=== PATIENT | female | born 1970 | race African-American/Black ===

== ENCOUNTER 2017-05-27 16:18 | Outpatient (CLI) | payer OTHER | END 2017-05-27 16:19 | disposition home or self-care (01) | LOC: BICRAD 16:18 | PROVIDERS: ATTEND Internal Medicine | DX: Z02.71 Encounter for disability determination (principal) | CPT/HCPCS: 72100 ==

== ENCOUNTER 2017-07-07 16:26 | Emergency (ER) | payer OTHER, SELFPAY ==
[2017-07-07 17:11] LABS: Bilirubin Negative (Negative); Blood, Urine Large (Negative); Clarity CLOUDY (Clear); Glucose, Urine (Dipstick) Negative (Negative); Leukocyte Negative (Negative); Nitrite Negative (Negative); Protein, Urine (Dipstick) 30 mg/dL (Neg-Trace); Specific Gravity, Urine 1.031 (1.002-1.036)
[2017-07-07 17:17] LABS: Bacteria/HPF Rare-Few HPF (None Seen); Hyaline Casts/LPF 4-6 HYALINE CAST LPF (0-3 Hyaline); Pathc Cast-AUWi Flag 1.16 (0-2.49); Pregnancy Test - Urine (BHCG) Negative (Negative); Pregu Control Background? CLEAR/WHITE (CLR/WHITE); Pregu Control Bar Appear? YES (CONTROL BAR); RBC/HPF GREATER THAN 50-TNTC HPF (0-3); Specific Gravity 1.031 (1.002-1.036)
[2017-07-07] MEDS ORDERED: Ketorolac Tromethamine 30 MG/ML VIAL ONE (17:33)
--- NOTE | 2017-07-07 18:18 | ULT ---
ULTRASOUND PELVIC TRANSVAGINAL: 07/07/17 HISTORY: Low abdominal pain, heavy vaginal bleeding. COMPARISON: None. FINDINGS: The uterus measures 9.4 x 5 x 5.6 cm. Endometrial thickness is 6 mm. There appears to be a large hematoma within the lower uterine segment endometrial cavity. Of note, alejandra mclean is currently on her period. The right ovary measures 2.3 x 1.4 x 1.8 cm. The left ovary measures 2.1 x 2.9 x 1.8 cm. There is a 2 .2 cm cyst in the left ovary. No free fluid. Vascular flow to the ovaries is unable to be obtained due to positioning. IMPRESSION: 1. Blood and debris, nonvascular, within the lower uterine segment. Of note, patient is currentl y on her period. 2. Unable to obtain blood flow within both ovaries due to positioning. POS: [facility]
[2017-07-07 18:25] LABS: #Lymphocytes 1.6 thou/uL (1.20-3.40); #Monocytes 0.4 thou/uL (0.11-0.59); #Neutrophils 4.9 thou/uL (1.40-6.50); %Basophils 0.3 % (0.0-1.0); %Eosinophils 0.7 % (0.0-10.0); %Lymphocytes 22.7 % (21.0-51.0); %Monocytes 5.8 % (0.0-10.0); %Neutrophils 70.5 % (42.0-75.0); Hemoglobin 11.8 g/dL (12.0-16.0); Mean Corpuscular HGB CONC 33.2 g/dL (32.0-36.0); Mean Corpuscular Hemoglobin 30.9 pg (27.0-31.0); Mean Corpuscular Volume 93.3 fl (81.0-99.0); Platelet Count 274 thou/uL (130-400); RBC Distribution Width 13.1 % (11.5-14.5); Red Blood Cell (RBC) Count 3.81 mill/uL (4.20-5.40); White Blood Cell (WBC) Count 6.9 thou/uL (4.8-10.8)
[2017-07-07 18:41] LABS: ALT (SGPT) 11 U/L (8-55); AST (SGOT) 14 U/L (5-34); Albumin 3.9 g/dL (3.5-5.0); Alkaline Phosphatase 67 U/L (40-150); Anion Gap 12 mmol/L (10-20); BUN (Urea Nitrogen) 10 mg/dL (7.0-18.7); Bilirubin, Total 0.4 mg/dL (0.2-1.2); Calc. Creatinine Clearance 0 mL/min (70-130); Calcium 8.8 mg/dL (7.8-10.44); Carbon Dioxide 25 mmol/L (22-29); Chloride 105 mmol/L (98-107); Estimated GFR-MDRD Greater than 90; Globulin 3.4 g/dL (2.4-3.5); Glucose 114 mg/dL (70-105); Potassium 3.6 mmol/L (3.5-5.1); Protein, Total 7.3 g/dL (6.0-8.3); Sodium 138 mmol/L (136-145)
== END 2017-07-07 16:45 | disposition home or self-care (01) ==
LOC: ERS 16:26
DX: N94.6 Dysmenorrhea, unspecified (principal); E11.9 Type 2 diabetes mellitus without complications; I10 Essential (primary) hypertension; E78.5 Hyperlipidemia, unspecified; F41.9 Anxiety disorder, unspecified; F32.9 Major depressive disorder, single episode, unspecified; Z79.899 Other long term (current) drug therapy; Z79.82 Long term (current) use of aspirin
CPT/HCPCS: 36415; 76856; 80053; 81003; 81015; 81025; 85025; 96374; J1885

== ENCOUNTER 2019-05-24 06:33 | Outpatient (CLI) | payer OTHER ==
[2019-05-24 10:18] LABS: #Eosinphils 0.1 thou/uL (0.0-0.7); #Lymphocytes 2.4 thou/uL (1.20-3.40); #Monocytes 0.4 thou/uL (0.11-0.59); #Neutrophils 3.3 thou/uL (1.40-6.50); %Basophils 0.7 % (0.0-1.0); %Eosinophils 2.2 % (0.0-10.0); %Lymphocytes 38.5 % (21.0-51.0); %Neutrophils 51.7 % (42.0-75.0); Hemoglobin 12.2 g/dL (12.0-16.0); Mean Corpuscular HGB CONC 32.7 g/dL (32.0-36.0); Mean Corpuscular Hemoglobin 30.3 pg (27.0-31.0); Mean Corpuscular Volume 92.6 fL (78.0-98.0); Mean Platelet Volume 6.7 fL (7.4-10.4); Platelet Count 349 thou/uL (130-400); RBC Distribution Width 12.5 % (11.5-14.5); Red Blood Cell (RBC) Count 4.04 mill/uL (4.20-5.40); White Blood Cell (WBC) Count 6.3 thou/uL (4.8-10.8)
[2019-05-24 10:27] LABS: Bacteria/HPF None Seen HPF (None Seen); Bilirubin Negative (Negative); Blood, Urine Negative (Negative); Clarity Turbid (Clear); Glucose, Urine (Dipstick) Normal (Negative); Leukocyte Negative Leu/uL (Negative); Mucous/LPF 1+ LPF (<2+); Nitrite Negative (Negative); Protein, Urine (Dipstick) 50 mg/dL (Neg-Trace); Urobilinogen Normal mg/dL (Less than 2)
[2019-05-24 10:37] LABS: Anion Gap 14 mmol/L (10-20); BUN (Urea Nitrogen) 12 mg/dL (7.0-18.7); Calc. Creatinine Clearance 0 mL/min (70-130); Calcium 9.6 mg/dL (7.8-10.44); Carbon Dioxide 28 mmol/L (22-29); Chloride 103 mmol/L (98-107); Estimated GFR-MDRD Greater than 90; Glucose 99 mg/dL (70-105); Potassium 3.8 mmol/L (3.5-5.1); Sodium 141 mmol/L (136-145)
== END 2019-05-24 06:34 | disposition home or self-care (01) ==
LOC: LABBT 06:33
PROVIDERS: ATTEND Orthopaedic Surgery
DX: Z01.818 Encounter for other preprocedural examination (principal); S82.841A Displaced bimalleolar fracture of right lower leg, initial encounter for closed fracture
CPT/HCPCS: 80048; 81001; 85025; 93005; 93010

== ENCOUNTER 2019-05-28 06:07 | Day surgery (SDC) | payer OTHER ==
[2019-05-24 09:32] VITALS: BMI 33.3
[2019-05-28] MEDS ORDERED: Midazolam HCl 2 mg/2 ml Vial ONE (06:50)
[2019-05-28] MEDS ORDERED: Fentanyl 100 MCG/2 ML VIAL ONE ×5 (06:50→10:24)
[2019-05-28] MEDS ORDERED: Ondansetron PF 4 MG/2 ML Vial IVP PRN (07:40)
[2019-05-28] MEDS ORDERED: Acetaminophen 325 MG TAB PO PRN (07:40)
[2019-05-28] MEDS ORDERED: Ropivacaine 0.2% 550 ML 550 ML NERVE BLCK SCH (07:40)
[2019-05-28] MEDS ORDERED: traMADol HCl 50 MG TAB PO PRN ×2 (07:40)
[2019-05-28] MEDS ORDERED: HYDROcodone/Acetaminophen 10/325 mg Tablet PO PRN ×2 (07:40)
[2019-05-28] MEDS ORDERED: Promethazine HCl 25 MG/ML VIAL IM PRN (07:40)
[2019-05-28] MEDS ORDERED: Zolpidem Tartrate 5 MG TAB PO PRN (07:40)
[2019-05-28] MEDS ORDERED: Fentanyl 100 MCG/2 ML VIAL IV PRN (07:41)
[2019-05-28] MEDS ORDERED: Bupivacaine PF 0.5% 30 ML VIAL ONE (08:13)
[2019-05-28] MEDS ORDERED: EPINEPHrine 1 MG/ML AMP ONE (08:13)
[2019-05-28] MEDS ORDERED: Lidocaine 1% PF 5 ML VIAL ONE (08:57)
[2019-05-28] MEDS ORDERED: Glycopyrrolate 0.2 MG/ML 5 ML SYRINGE ONE (08:57)
[2019-05-28] MEDS ORDERED: Ropivacaine 0.2% HCl/PF (40 MG/20 ML VIAL) ONE (08:57)
[2019-05-28] MEDS ORDERED: Ondansetron PF 4 MG/2 ML Vial ONE (08:57)
[2019-05-28] MEDS ORDERED: Rocuronium Bromide 10 MG/ML (10ML VIAL) ONE (08:57)
[2019-05-28] MEDS ORDERED: PROPOFOL 200 MG/20 ML VIAL ONE (08:57)
[2019-05-28] MEDS ORDERED: Metoclopramide HCl 10 MG/2 ML VIAL ONE (08:57)
[2019-05-28] MEDS ORDERED: Succinylcholine Chloride 20 MG/ML 10 ml SYRINGE FS ONE (08:57)
[2019-05-28] MEDS ORDERED: Ropivacaine 0.5% HCl/PF (150 MG/30 ML VIAL) ONE (08:57)
[2019-05-28] MEDS ORDERED: Bupivacaine HCl 0.5%/Epinephrine 1:200,000/PF 30 ml Vial ONE ×2 (08:57)
--- NOTE | 2019-05-28 09:01 | RAD ---
RIGHT ANKLE: Five fluoroscopic images presented from OR. INDICATION: Open reduction internal fixation right ankle. FINDINGS/IMPRESSION: These films demonstrate plate and screws transfixing the distal fibula and lateral malleolus. POS: [facility]
--- NOTE | 2019-05-28 12:07 | OP ---
DATE OF PROCEDURE: 05/28/2019 PREOPERATIVE DIAGNOSIS: Right ankle fracture dislocation, medial clear space widening. POSTOPERATIVE DIAGNOSES: 1. Right lateral malleolus ankle fracture. 2. Avulsion fracture deltoid ligament injury. 3. Stable syndesmosis. PROCEDURES PERFORMED: 1. Open reduction and internal fixation of lateral malleolus. 2. Primary repair of deltoid ligament. 3. Stress exam under fluoro. 4. Posterior splint. MORGUE KEEPER: Sai Ann PA-C ANESTHESIOLOGIST: Vincent Astorga MD ANESTHESIA: The patient received general endotracheal intubation with a lateral sciatic catheter. ESTIMATED BLOOD LOSS: Less than 30 mL. TOURNIQUET TIME: 64 minutes at 300 mmHg. ANTIBIOTICS: Ancef 2 g. IMPLANTS: Synthes 8-hole plate with three 4.0 cancellous screws, four 3.5 cortical screws. COMPLICATIONS: None. HISTORY OF PRESENT ILLNESS: Ms. Cordoba is a 48-year-old female. She is a teacher 's aide. She lives in the [facility], sustained a fracture dislocation of right ankle on 05/18/2019, presented to [facility] ER at [facility]. The patient was seen at my office, was noted to have a subluxed ankle. I discussed with family and patient the risks and benefits of open reduction and internal fixation of bimalleolar ankle fracture, possible deltoid ligament repair, and stressed possible syndesmosis fixation including pain; scar; bleeding; infection; damage to vital structures, nerves, arteries, tendons; decreased range of motion and strength; need for further surgeries; continued pain despite surgical intervention; equinus contracture; damage to vital structures; loss of life or limb. The patient and family understood the risks and benefits of the procedure, elected to proceed. DESCRIPTION OF PROCEDURE: Time-out was performed designating the patient's right lower extremity as the operative site based on site, consents, and marking. After time-out, the patient's right lower extremity was prepped and draped in a sterile fashion. Tourniquet was brought up and left for 64 minutes. I made an incision down the lateral malleolus, came down, and dissected with scissors proximally to keep the nerve posteriorly, came down in the plane and dissected with a wood handle elevator to free up the spikes on both sides, cleaned the hematoma, reduced the fracture, put a 3.5 lag screw and then fitted our 8-hole plate and placed a 3.5 screw in the shaft proximally and 4.0 cancellous distally. We placed two more 4.0 cancellous screws in the distal fragment and two more 3.5 screws proximally spanning it. We then looked at the ankle. The stress was negative, but still slightly medially widened. Therefore, we made a medial incision down. We were able to bring some of the avulsed deltoid out of the joint, which helped with the reduction of the ankle. We took that avulsed ligament, which appeared to be more distally torn intrasubstance. We used some whipstitches through and passed it distally through the soft tissues to help with repair, which stabilized the ankle. We did some simple [id number] oversews to complete our deltoid repair medially. We washed. We stressed under fluoroscopy, ensured that the syndesmosis was stable. We then closed with 0, 2-0, and 3-0 nylon. The patient was placed in a posterior splint. The patient will remain in the splint until she follows up with me in about 12 to 14 days for suture removal. The patient will be sent home with pain medications, ibuprofen, elevate, ice, and nonweightbearing. Job ID: [id number] [facility]
== END 2019-05-28 13:10 | disposition home or self-care (01) ==
LOC: SDC 06:07
PROVIDERS: ATTEND Orthopaedic Surgery
PROC: 0MQQ0ZZ Repair Right Ankle Bursa and Ligament, Open Approach (ICD-10-PCS; principal; 2019-05-28)
PROC: 3E0T3BZ Introduction of Anesthetic Agent into Peripheral Nerves and Plexi, Percutaneous Approach (ICD-10-PCS; principal; 2019-05-28)
PROC: 0QSJ04Z Reposition Right Fibula with Internal Fixation Device, Open Approach (ICD-10-PCS; principal; 2019-05-28)
DX: S82.61XA Displaced fracture of lateral malleolus of right fibula, initial encounter for closed fracture (principal); S93.421A Sprain of deltoid ligament of right ankle, initial encounter; G89.18 Other acute postprocedural pain; I10 Essential (primary) hypertension; E11.9 Type 2 diabetes mellitus without complications; Z79.84 Long term (current) use of oral hypoglycemic drugs; Z79.899 Other long term (current) drug therapy
CPT/HCPCS: 76000; A4306; C1713; J0171; J0670; J0690; J2001; J2250; J2405; J2704; J2765; J2795; J3010; S0020

== ENCOUNTER 2022-04-12 15:31 | Emergency (ER) | payer OTHER, BC ==
[2022-04-12] MEDS ORDERED: Acetaminophen 500 MG TAB ONE (16:37)
[2022-04-12] MEDS ORDERED: Ondansetron ODT 4 MG TAB ONE (16:50)
== END 2022-04-12 17:28 | disposition home or self-care (01) ==
LOC: ERS 15:31
DX: S60.222A Contusion of left hand, initial encounter (principal); S70.12XA Contusion of left thigh, initial encounter; E11.9 Type 2 diabetes mellitus without complications; I10 Essential (primary) hypertension; E78.00 Pure hypercholesterolemia, unspecified; V43.52XA Car driver injured in collision with other type car in traffic accident, initial encounter; Y92.410 Unspecified street and highway as the place of occurrence of the external cause; Z79.82 Long term (current) use of aspirin
CPT/HCPCS: 70450; Q0162

== ENCOUNTER 2025-01-14 12:32 | Outpatient (CLI) | payer OTHER ==
[2025-01-14 13:19] LABS: Estimated GFR - POC 102.0
== END 2025-01-14 12:33 | disposition home or self-care (01) ==
LOC: SCSMRI 12:32
PROVIDERS: ATTEND Nurse Practitioner Family
DX: G56.01 Carpal tunnel syndrome, right upper limb (principal); G56.11 Other lesions of median nerve, right upper limb; M79.89 Other specified soft tissue disorders; M65.941 Unspecified synovitis and tenosynovitis, right hand; S63.501A Unspecified sprain of right wrist, initial encounter
CPT/HCPCS: 36415; 82565